=== PATIENT | female | born 1995 | race African-American/Black ===

== ENCOUNTER 2018-08-19 08:42 | Emergency (ER) | payer MEDICAID, OTHER ==
[~2018-08-19] VITALS: Ht 167.6 cm; Wt 64.0 kg
[2018-08-19 08:47] VITALS: BP_SYST 117
[2018-08-19 10:10] LABS: BILIRUBIN,URINE NEGATIVE (NEGATIVE); BLOOD, URINE 2+ (NEGATIVE); CLARITY/URINE CLEAR (CLEAR); COLOR,URINE YELLOW (YELLOW); GLUCOSE,URINE NEGATIVE (NEGATIVE); KETONES,URINE NEGATIVE (NEGATIVE); LEUKOCYTE ESTERASE ,URINE TRACE (NEGATIVE); NITRITE, URINE NEGATIVE (NEGATIVE); PROTEIN URINE NEGATIVE (NEGATIVE); UROBILINOGEN,URINE 0.2 (0.2-1.0)
[2018-08-19 10:36] LABS: BACTERIA,URINE MODERATE /HPF (None Seen); MUCUS,URINE 1+ /LPF (None Seen); WBC,URINE 0-3 /HPF (0-3)
[2018-08-19 10:40] VITALS: BP_SYST 110
[2018-08-21 00:19] LABS: CHLAMYDIA TRACHOMATIS NAA Negative (Negative); NEISSERIA GONORRHOEAE NAA Negative (Negative)
== END 2018-08-19 10:40 | disposition home or self-care (01) ==
LOC: SED 08:42
DX: N76.0 Acute vaginitis (principal); B96.89 Other specified bacterial agents as the cause of diseases classified elsewhere; R87.5 Abnormal microbiological findings in specimens from female genital organs
CPT/HCPCS: 81000-TC; 87086; 87210-TC; 87491; 87591; 99283

== ENCOUNTER 2018-10-20 14:55 | Emergency (ER) | payer OTHER ==
[~2018-10-20] VITALS: Ht 167.6 cm; Wt 64.0 kg
[2018-10-20 15:06] VITALS: BP_SYST 146
--- NOTE | 2018-10-20 15:12 | NUR ---
Patient triaged and placed in waiting room. VSS and patient appears in no acute distress at this time. Accompanied by self, awaiting available bed, and MD notified of need for MSE.
--- NOTE | 2018-10-20 15:54 | NUR ---
Patient to ER bed 6 to gown for evaluation. Side rails up. Report given to Fam FIELDS.
--- NOTE | 2018-10-20 15:55 | NUR ---
Patient ambulatory to ED a/o x 4 with c/o pelvic and flank pain. Pain described as dull, aching. Recently dx with bacterial vaginosis. +Discharge -Fevers -N/V.
--- NOTE | 2018-10-20 15:58 | NUR ---
ED MD Andrea bedside.
--- NOTE | 2018-10-20 16:55 | NUR ---
Patient given written and verbal discharge instructions and verbalizes understanding. ER MD discussed with patient the results and treatment provided. Patient in stable condition. ID arm band removed. IV catheter removed intact and dressing applied, no active bleeding. Rx of lactulose and minere oil given. Patient educated on pain management and to follow up with PMD. Pain Scale 3/10 tolerable for patient. Opportunity for questions provided and answered. Medication side effect fact sheet provided.
[2018-10-20 17:03] VITALS: BP_SYST 141
== END 2018-10-20 16:55 | disposition home or self-care (01) ==
LOC: SED 14:55
DX: R10.32 Left lower quadrant pain (principal)
CPT/HCPCS: 74021; 76830-TC; 76857; 81002; 81025; 99284

== ENCOUNTER 2018-12-28 22:29 | Emergency (ER) | payer OTHER ==
[~2018-12-28] VITALS: Ht 167.6 cm; Wt 64.0 kg
[2018-12-28 22:35] VITALS: BP_SYST 119
== END 2018-12-29 00:13 | disposition home or self-care (01) ==
LOC: SED 22:29
DX: R10.84 Generalized abdominal pain (principal); F32.9 Major depressive disorder, single episode, unspecified; F41.9 Anxiety disorder, unspecified
CPT/HCPCS: 99283